=== PATIENT | female | born 1980 | race Caucasian/White ===

== ENCOUNTER 2019-07-05 14:20 | Outpatient (CLI) | payer BC ==
[~2019-07-05 14:20] MED LIST: DOCU240C31 PO; IBUP-1222 PO; IBUP200T49 PO; OXYC-302 PO
== END 2019-07-05 23:59 | disposition home or self-care (01) ==
LOC: CFH 14:20
PROVIDERS: ATTEND Obstetrics & Gynecology
DX: Z12.31 Encounter for screening mammogram for malignant neoplasm of breast (principal)
CPT/HCPCS: 77067

== ENCOUNTER → 2020-07-10 | Outpatient (CLI) | payer BC | END | disposition home or self-care (01) | LOC: CFH 09:04 | PROVIDERS: ATTEND Obstetrics & Gynecology | DX: Z12.31 Encounter for screening mammogram for malignant neoplasm of breast (principal) | CPT/HCPCS: 77063; 77067 ==